=== PATIENT | female | born 1955 | race Caucasian/White ===

== ENCOUNTER 2017-09-13 06:35 | Emergency (ER) | payer OTHER ==
[2017-09-13] MEDS ORDERED: TETANUS/DIPHTHERIA/PERTUSSIS 0.5 ML SYRINGE IM ONE (06:54)
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
[2017-09-13] MEDS ORDERED: BACITRACIN OINT TOP STA (07:12)
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
[2017-09-13] MEDS ORDERED: ACETAMINOPHEN 325 MG TABLET PO STA (08:31)
[2017-09-13] MEDS ORDERED: IBUPROFEN 400 MG TABLET PO STA (08:31)
[2017-09-13 08:55] VITALS: BP 152/74
== END 2017-09-13 08:54 | disposition home or self-care (01) ==
LOC: ED 06:35
DX: S32.502A Unspecified fracture of left pubis, initial encounter for closed fracture (principal); S50.312A Abrasion of left elbow, initial encounter; Z23 Encounter for immunization; V86.59XA Driver of other special all-terrain or other off-road motor vehicle injured in nontraffic accident, initial encounter
CPT/HCPCS: 73502; 90471; 90715; 99283; 99284; A9270